=== PATIENT | male | born 1980 | race Caucasian/White ===

== ENCOUNTER → 2018-06-18 | Outpatient (CLI) | payer OTHER ==
--- NOTE | 2018-06-18 13:35 | CT ---
EXAMINATION TYPE: CT lumbar spine wo con DATE OF EXAM: 06/18/2018 COMPARISON: None HISTORY: Chronic low back pain, M 54.5 CT DLP: 1303 mGycm Automated exposure control for dose reduction was used. An unenhanced CT of the lumbar spine was performed. Bone and soft tissue window settings are submitt ed as well as coronal and sagittal reconstructions. FINDINGS: Lumbar vertebral bodies show preserved height, alignment, and there is loss of disc height L5-S1 with associated vacuum phenomenon, spondylosis. L1-L2: Normal disc space height. No disc herniation protrusion or central stenosis. No facet joint arthropathy. No evidence for foraminal encroachment. L2-L3: Normal disc space height. No disc herniation protrusion or central stenosis. No facet joint arthropathy. No evidence for foraminal encroachment. L3-L4: Minimal posterior broad-based disc bulge causes slight anterior mass effect on the thecal sac. No significant foraminal encroachment or central stenosis. L4-L5: Posterior broad-based disc bulge causes minimal anterior mass effect on the thecal sac. No sig nificant central stenosis, foraminal encroachment. L5-S1: There is a posterior disc bulge at L5-S1, some calcification of the annulus fibrosis laterally is noted, there is some local mass effect on the left S1 nerve root as well as lateral extension of endplate disc complex causing left sided foraminal encroachment. No significant central stenosis. No paraspinal masses are identified. Lumbar segments are intact. IMPRESSION: Degenerative disc disease as described. Correlate for left L5, S1 radiculopathy.
== END | disposition home or self-care (01) ==
LOC: RADCTMAIN 11:31
PROVIDERS: ATTEND Internal Medicine
DX: M51.27 Other intervertebral disc displacement, lumbosacral region (principal); M51.36 Other intervertebral disc degeneration, lumbar region; Z91.030 Bee allergy status; Z91.018 Allergy to other foods
CPT/HCPCS: 72131

== ENCOUNTER → 2018-09-12 | Outpatient (CLI) | payer OTHER | END | disposition home or self-care (01) | LOC: LABWHC1 13:03 | PROVIDERS: ATTEND Pathology Anatomic Pathology & Clinical Pathology | DX: Z53.9 Procedure and treatment not carried out, unspecified reason (principal) | CPT/HCPCS: 36415 ==